=== PATIENT | male | born 1970 ===

== ENCOUNTER 2017-11-13 23:36 | Inpatient (IN) | payer BC ==
[~2017-11-13] VITALS: Ht 185.4 cm; Wt 115.9 kg
[2017-11-14] MEDS ORDERED: [UNRECOGNIZED DRUG - REMARK] (00:17)
[2017-11-14 00:18] LABS: BASOPHILS ABSOLUTE AUTO 0.03 K/mm3 (0.00-0.23); BASOPHILS PERCENT AUTO 0 % (0-2); EOSINOPHILS ABSOLUTE AUTO 0.06 K/mm3 (0.00-0.68); EOSINOPHILS PERCENT AUTO 1 % (0-6); Hematocrit 48.2 % (37.0-53.0); Hemoglobin 15.8 g/dL (13.5-17.5); IMMATURE GRAN ABSOLUTE AUTO 0.05 K/mm3 (0.00-0.10); IMMATURE GRAN PERCENT AUTO 0 % (0-1); LYMPHOCYTES ABSOLUTE AUTO 1.52 K/mm3 (0.84-5.20); LYMPHOCYTES PERCENT AUTO 13 % (21-46); MONOCYTES ABSOLUTE AUTO 0.74 K/mm3 (0.16-1.47); MONOCYTES PERCENT AUTO 6 % (4-13); Mean Corpuscular HGB 26.8 pg (26.0-34.0); Mean Corpuscular HGB Conc 32.8 g/dL (31.5-36.5); Mean Corpuscular Volume 82 fL (80-100); Mean Platelet Volume 9.6 fL (9.1-12.4); NEUTROPHILS ABSOLUTE AUTO 9.64 K/mm3 (1.96-9.15); NEUTROPHILS PERCENT AUTO 80 % (41-73); Platelet Count 240 K/mm3 (150-400); RDW Coefficient Variation 14.1 % (11.7-14.2); RDW Standard Deviation 41.3 fL (35.1-46.3); White Blood Cell Count 12.04 K/mm3 (4.00-11.30)
[2017-11-14 00:40] LABS: Alanine Aminotransfer (ALT/SGP 24 U/L (12-78); Albumin, Blood 3.6 g/dL (3.4-5.0); Albumin/Globulin Ratio 0.8 (0.8-1.8); Alk Phos 54 U/L (50-136); Anion Gap 7 mmol/L (6-16); Aspartate Aminotrans (AST/SGOT 20 U/L (12-37); Bilirubin, Total 0.6 mg/dL (0.1-1.0); Blood Urea Nitrogen 23 mg/dL (8-24); CO2, Blood 29 mmol/L (21-32); Calcium, Blood 8.5 mg/dL (8.5-10.1); Chloride, Blood 102 mmol/L (98-108); Creatinine, Blood 1.35 mg/dL (0.60-1.20); Globulin, Blood 4.8 g/dL (2.2-4.0); Glomerular Filtration Rate >60 (60-); Glucose, Blood 100 mg/dL (70-99); Potassium, Blood 3.5 mmol/L (3.5-5.5); Sodium, Blood 138 mmol/L (136-145); Total Protein, Blood 8.4 g/dL (6.4-8.2); Troponin I <0.015 ng/mL (0.000-0.040)
[2017-11-14 02:05] LABS: Free Thyroxine 1.22 ng/dL (0.70-1.60)
[2017-11-14 02:06] LABS: Thyroid Stimulating Hormone 0.816 uIU/mL (0.360-4.800); Triiodothyronine, Free 2.95 pg/mL (2.18-3.98)
[2017-11-14 03:53] LABS: CHOL/HDL RATIO 4.5; Cholesterol 243 mg/dL (50-200); HDL Cholesterol 54 mg/dL (>39); LDL/HDL RATIO 3.1; Low Density Lipoprotein Chol 165 mg/dL (0-110); Triglycerides 121 mg/dL (30-160); Very Low Density Lipoprot Chol 24 mg/dL (6-32)
[2017-11-14 04:22] LABS: U Amphetamine Screen Not Detected; U Barbituate Screen Not Detected; U Benzodiazapine Screen Not Detected; U Buprenorphine Screen Not Detected; U Cannabinoids Screen Not Detected; U Cocaine Screen Not Detected; U Methadone Screen Not Detected; U Methamphetamine Screen Not Detected; U Opiates Screen Not Detected; U Oxycodone Screen Not Detected; U Phencyclidine Screen Not Detected; U Propoxyphene Screen Not Detected
== END 2017-11-14 15:25 | disposition short-term general hospital (02) | DRG 301 ==
LOC: ER 23:36 → PCU 23:37 → ER 11-14 02:40 → PCU 11-14 03:15 → ICUW 11-14 13:31 → PCU 11-14 13:31 → ICUW 11-14 13:31
PROVIDERS: Emergency Medicine; Family Medicine
DX: I71.02 Dissection of abdominal aorta (principal); D72.829 Elevated white blood cell count, unspecified; I10 Essential (primary) hypertension; R79.89 Other specified abnormal findings of blood chemistry; I16.0 Hypertensive urgency; Z79.899 Other long term (current) drug therapy; Z91.14 Patient's other noncompliance with medication regimen
CPT/HCPCS: 36415; 71046; 71275; 74175; 80053; 80061; 82570; 83880; 84439; 84443; 84481; 84484; 84585; 85025; 93005; 93010; 93306; 93975; 96374; 99285; J0360; J2060; J3010; J7050; Q9967